=== PATIENT | female | born 1985 | race Caucasian/White ===

== ENCOUNTER 2021-04-21 09:07 | Outpatient (CLI) | payer OTHER | END 2021-04-21 09:17 | disposition home or self-care (01) | LOC: SONOGRAMA 09:07 | PROVIDERS: ATTEND Internal Medicine Rheumatology | DX: M25.572 Pain in left ankle and joints of left foot (principal) ==

== ENCOUNTER 2021-07-26 09:19 | Outpatient (CLI) | payer OTHER | END 2021-07-26 09:27 | disposition home or self-care (01) | LOC: SONOGRAMA 09:19 | PROVIDERS: ATTEND Internal Medicine Endocrinology, Diabetes & Metabolism | DX: E04.1 Nontoxic single thyroid nodule (principal) ==

== ENCOUNTER 2021-12-22 12:47 | Outpatient (CLI) | payer OTHER | END 2021-12-22 12:53 | disposition home or self-care (01) | LOC: SONOGRAMA 12:47 | PROVIDERS: ATTEND Internal Medicine Endocrinology, Diabetes & Metabolism | DX: E04.1 Nontoxic single thyroid nodule (principal) ==

== ENCOUNTER 2022-03-19 10:01 | Outpatient (CLI) | payer OTHER | END 2022-03-19 10:02 | disposition home or self-care (01) | LOC: LAB 10:01 | DX: E55.9 Vitamin D deficiency, unspecified (principal); M32.8 Other forms of systemic lupus erythematosus ==